=== PATIENT | female | born 1965 | race African-American/Black ===

== ENCOUNTER 2017-04-02 07:09 | Emergency (ER) | payer OTHER ==
[~2017-04-02] VITALS: Ht 162.6 cm; Wt 100.0 kg
[2017-04-02] MEDS ORDERED: METHOCARBAMOL 500MG TABLET PO ONE (08:30)
[2017-04-02] MEDS ORDERED: IBUPROFEN 600MG TABLET PO ONE (08:30)
[2017-04-02 14:23] VITALS: BP 148/62
== END 2017-04-02 11:24 | disposition home or self-care (01) ==
LOC: ER 07:26
DX: S82.141A Displaced bicondylar fracture of right tibia, initial encounter for closed fracture (principal); M25.461 Effusion, right knee; I10 Essential (primary) hypertension; Z88.2 Allergy status to sulfonamides; V49.88XA Car occupant (driver) (passenger) injured in other specified transport accidents, initial encounter; Y93.89 Activity, other specified; Y92.410 Unspecified street and highway as the place of occurrence of the external cause; Y99.8 Other external cause status
CPT/HCPCS: 73562; 73610; 99284; L1830